=== PATIENT | female | born 1965 | race Hispanic/Latino ===

== ENCOUNTER 2017-07-13 16:08 | Outpatient (CLI) | payer BC | END 2017-07-13 16:09 | disposition home or self-care (01) | LOC: BICMAMMO 16:08 | PROVIDERS: ATTEND Family Medicine | DX: Z12.31 Encounter for screening mammogram for malignant neoplasm of breast (principal) | CPT/HCPCS: 77063; 77067 ==

== ENCOUNTER 2019-05-11 18:26 | Emergency (ER) | payer BC ==
[2019-05-11] MEDS ORDERED: Meclizine HCl 25 MG TAB ONE (19:12)
== END 2019-05-11 21:24 | disposition home or self-care (01) ==
LOC: ERS 18:26
DX: R42 Dizziness and giddiness (principal); E11.9 Type 2 diabetes mellitus without complications; I10 Essential (primary) hypertension; E66.9 Obesity, unspecified; Z79.84 Long term (current) use of oral hypoglycemic drugs; Z79.899 Other long term (current) drug therapy
CPT/HCPCS: 99283; J8597

== ENCOUNTER 2020-07-19 07:44 | Outpatient (CLI) | payer BC | END 2020-07-19 07:45 | disposition home or self-care (01) | LOC: BICMAMMO 07:44 | PROVIDERS: ATTEND Family Medicine | DX: Z12.31 Encounter for screening mammogram for malignant neoplasm of breast (principal) | CPT/HCPCS: 77063; 77067 ==

== ENCOUNTER 2021-07-10 22:43 | Emergency (ER) | payer BC, SELFPAY | END 2021-07-11 01:29 | disposition home or self-care (01) | LOC: ERS 22:43 | DX: G93.2 Benign intracranial hypertension (principal); I10 Essential (primary) hypertension; E11.9 Type 2 diabetes mellitus without complications; E66.9 Obesity, unspecified; Z79.84 Long term (current) use of oral hypoglycemic drugs; Z79.899 Other long term (current) drug therapy | CPT/HCPCS: 93005 ==

== ENCOUNTER 2023-10-08 09:53 | Emergency (ER) | payer BC, SELFPAY ==
[2023-10-08] MEDS ORDERED: Morphine 4 MG/ML VIAL ONE (10:22)
== END 2023-10-08 11:40 | disposition home or self-care (01) ==
LOC: ERS 09:53
DX: S39.012A Strain of muscle, fascia and tendon of lower back, initial encounter (principal); S80.02XA Contusion of left knee, initial encounter; S80.01XA Contusion of right knee, initial encounter; I10 Essential (primary) hypertension; E11.9 Type 2 diabetes mellitus without complications; E66.9 Obesity, unspecified; W22.8XXA Striking against or struck by other objects, initial encounter; Y93.89 Activity, other specified; Y92.69 Other specified industrial and construction area as the place of occurrence of the external cause
CPT/HCPCS: 70450; 72125; 72131; 96372; J2272